=== PATIENT | male | born 1995 | race Hispanic/Latino ===

== ENCOUNTER 2024-06-07 17:35 | Emergency (ER) | payer SELFPAY ==
[2024-06-07] VITALS (8 sets, daily range): BP systolic 110–130; BP diastolic 69–83; BMI 30.4
[2024-06-07 18:19] LABS: ALT (SGPT) 84 U/L (0-50); AST (SGOT) 46 U/L (17-59); Albumin 4.8 g/dl (3.5-5.0); Alkaline Phosphatase 61 U/L (38-126); Blood Urea Nitrogen 14 mg/dl (9-20); Calcium 9.6 mg/dl (8.4-10.2); Carbon Dioxide 25 mmol/L (22-30); Chloride 104 mmol/L (98-107); Estimated Creatinine Clearance > 125 ml/min; Glucose 99 mg/dl (70-99); Lipase 146 U/L (23-300); Potassium 4.2 mmol/L (3.5-5.1); Sodium 138 mmol/L (135-145); Total Bilirubin 0.6 mg/dl (0.2-1.3); Total Protein 7.9 g/dl (6.3-8.2); eGFR > 60.00
[2024-06-07 18:58] LABS: % Basophils 0.4 % (0-2); % Eosinophils 3.9 % (0-6); % Immature Granulocytes 0.3 % (0-0.5); % Lymphocytes 45.5 % (20.5-51.1); % Monocytes 6.2 % (1.7-9.3); % Neutrophils 43.7 % (42.2-75.2); Absolute Eosinophils 0.3 10^3/uL (0-0.7); Absolute Lymphocytes 3.3 10^3/uL (1.2-3.4); Absolute Monocytes 0.4 10^3/uL (0.1-0.6); Absolute Neutrophils 3.1 10^3/uL (1.4-6.5); Hematocrit 42.4 % (39.0-52.0); Hemoglobin 14.2 g/dL (13.0-18.0); Mean Corp Hgb Conc. 33.5 g/dL (33.0-37.0); Mean Corpuscular Hgb 28.5 pg (27.0-31.0); Mean Corpuscular Volume 85.1 fL (80.0-94.0); Mean Platelet Volume 10.7 fL (7.4-10.4); Nucleated Red Blood Cells % 0 % (-); Platelet Count 212 10^3/uL (130-400); Red Blood Cell Count 4.98 10^6/uL (4.70-6.10); Red Cell Dist. Width 12.4 % (11.5-14.5); White Blood Cell Count 7.1 10^3/uL (4.8-10.8)
[2024-06-07 19:10] LABS: Monotest Negative (Negative)
[2024-06-07 19:14] LABS: COVID-19 Antigen Negative (Negative)
[2024-06-07] MEDS: PROTONIX IV 40 MG IV (19:44)
[2024-06-07] MEDS: NSS 1000 IV (19:44)
[2024-06-07] MEDS: TORADOL 30 MG IV (19:44)
--- NOTE | 2024-06-07 22:32 | ED.GENMED ---
History of Present Illness
General
Chief Complaint: Abdominal Pain
Source: patient and staff interpreter (language line)
Exam Limitations: none
Time Seen by Provider: 06/07/24 17:56
Nursing documentation reviewed up to this point in time: agreed with
History of Present Illness
History of Present Illness:
Patient to ED with complaint of upper abdominal burning and sorethroat. Symptoms started 4 days ago. Denies fever/chills. Reports poor appetite. Brought self to ED for eval.
Past History
Past History
ED Past Medical History: None
ED Past Surgical History: None
Social History
Tobacco: Non-smoker
Alcohol: Occasional
Drug: None
Personal: Single
Review of Systems
Review of Systems
Allergies reviewed?: Yes
All Other Systems: ROS reviewed and negative except as documented in HPI and ROS
Constitutional: Reports fatigue
EENT: Reports sore throat
Respiratory: Reports no symptoms
Cardiac: Reports no symptoms
ABD/GI: Reports abdominal pain (Upper abd. pain)
: Reports no symptoms
Musculoskeletal: Reports no symptoms
Skin: Reports no symptoms
Neurological: Reports no symptoms
Psychiatric: Reports no symptoms
Phy Exam
General Physical Exam
General Presentation: mild distress
General age: appears stated age
General Skin: warm and dry
General Habitus: normal
General Mental: alert
ENT Exam
ENT Exam: TM's normal, neck supple, pharyngeal erythema, swallowing well and other (Bilateral enlarged tonsils. No evidence of peritonsilar abscess/cellulitis)
Cardiovascular Exam
Cardiovascular Exam: regular rate/rhythm and no edema
Pulmonary Exam
Pulmonary Exam: lungs clear and no respiratory distress
Gastrointestinal Exam
Gastrointestinal Exam: normal bowel sounds, soft, no organomegaly, non distended and no cva tenderness
Palpation: left upper quadrant: Mild tenderness, left lower quadrant: No tenderness, right upper quadrant: Mild tenderness and right lower quadrant: No tenderness
Neurological Exam
Neurological Exam: alert, oriented x3, CN II-XII intact, no motor deficits, no sensory deficits and normal gait
Musculoskeletal Exam
Musculoskeletal Exam: full ROM and neuro vasc intact
Skin Exam
Skin Exam: normal color, warm/dry and no rash
Psychiatric Exam
Psychiatric Exam: normal mood/affect
Course
Orders/Labs/Results
Orders:
Orders
06/07/24 17:53
Comprehensive Metabolic Panel Urgent
Lipase Urgent
06/07/24 18:30
Add On- LAB Urgent
Tests Added?: Lipase
06/07/24 18:31
US Abdomen Complete/Upper Urgent
Comment:
Reason For Exam: pain
06/07/24 18:47
COVID-19 Antigen Urgent
Source: Nasal Swab
Complete Blood Count/With Diff Urgent
Monotest Urgent
Influenza A+B Rapid Molecular Urgent
KERI Source: Nasal Swab
Specimen Description:
Rapid Strep Group A Urgent
KERI Source: Throat/Pharynx
Specimen Description:
Date Specimen was Collected: 06/07/24
Time Specimen was Collected: 18:34
06/07/24 19:30
0.9% Sodium Chloride 1000 ml [Nss] 1,000 ml IV BOLUS
Ketorolac [Toradol] 30 mg IV NOW STA
Pantoprazole [Protonix IV] 40 mg IV NOW STA
06/07/24 19:35
Pantoprazole [Protonix] 40 mg .ROUTE .STK-MED ONE
06/07/24 22:59
Dexamethasone Sod Phosphate [Decadron] 10 mg IV NOW STA
Abnormal Lab Results
06/07/24 06/07/24
17:53 18:47
MPV 10.7 H fL
(7.4-10.4)
ALT 84 H U/L
(0-50)
06/07/24 18:47
06/07/24 17:53
Vital Signs
Initial and Last Documented VS:
Initial Vital Signs
Temp Pulse Resp BP Pulse Ox
98.2 F 80 18 130/81 99
06/07/24 17:37 06/07/24 17:37 06/07/24 17:37 06/07/24 17:37 06/07/24 17:37
Last Documented Vital Signs
Temp Pulse Resp BP Pulse Ox
98.2 F 62 18 111/70 96
06/07/24 17:37 06/07/24 22:15 06/07/24 22:15 06/07/24 22:00 06/07/24 22:15
*Radiology
Radiology exam reviewed: radiology read reviewed
*Pulse Oximetry
Patient hypoxic: no
*Critical Care Note
Total Time (30-74mins, 75-104mins- exclusive of procedures): Not Applicable
Update Note
Update Note:
Labs, US report reviewed. No concerning findings on exam tonight. He remains afebrile. Abdominal discomfort improve with protonix. WIll continue x 2 weeks and request PCP re-evaluation. Bilateral tonsils are enlarged. Strep, flu, covid, mono
neg. Nontoxic appearing. given dose of decadron IV for inflammation and pain. Will need follow up with PCP in 2-3 days for re-assessment. He was ginve instructions on s/s to return to ED and he is agreeable to plan.
ED Attending Note
-
Portions of this chart may have been created with voice recognition software.� Occasional wrong word or��sound alike� substitutions may have occurred due to the inherent limitations of voice recognition software.
Discharge Plan
Departure
Patient Disposition: Home (Routine Discharge)
Date of Disposition: 06/07/24
Time of Disposition: 22:59
Patient with high blood pressure during this ER visit?: No
Condition: Good
Covid-19: Not Applicable
Discharge Problem:
Viral illness, Abdominal pain
Instructions: Sore throat in adults, Abdominal Pain
Prescriptions:
New
pantoprazole [Protonix] [address] for susp in packet
40 mg PO DAILY Qty: 14 0RF
Referrals:
[facility] [Outside] - Call in 1-3 days for appt
NONE,* [Family Provider] -
Stand Alone Forms: Return to Work
Interventions
Interventions:
*Risk Screen - Suicide Last Done: 06/07/24 17:37
*General Assessment Last Done: 06/07/24 18:33
*Neglect/Abuse Screening Last Done: 06/07/24 18:59
ED- Fall Risk Assessment Last Done: 06/07/24 18:59
*ED COVID-19 Vaccine History Last Done: 06/07/24 17:37
TL-Gbantn-[place] Assessment Last Done: 06/07/24 18:59
Discharge Date and Time
Print Language: [id number]
[2024-06-07] MEDS: DECADRON 10 MG IV (23:28)
== END 2024-06-07 23:47 | disposition home or self-care (01) ==
LOC: EMR 17:35
PROVIDERS: Emergency Medicine; Nurse Practitioner; EMERGENCY PHYSICIAN Student in an Organized Health Care Education/Training Program
DX: B34.9 Viral infection, unspecified (principal); R10.10 Upper abdominal pain, unspecified; R11.2 Nausea with vomiting, unspecified; R19.7 Diarrhea, unspecified; Z11.52 Encounter for screening for COVID-19
CPT/HCPCS: 99284; 96374; 96375 ×2; 96361; 76700; 80053; 83690; 85025; 86308; 87070; 87502; 87811; 87880